=== PATIENT | female | born 1960 | race American Indian/Alaskan Native ===

== ENCOUNTER 2019-09-09 09:08 | Emergency (ER) | payer OTHER ==
--- NOTE | 2019-09-09 09:24 | ED Physician Documentation ---
PD HPI BACK PAIN - Stated complaint Stated Complaint: LOWER BACK PX - Chief complaint Chief Complaint: Back Pain - History obtained from History obtained from: Patient - History of Present Illness Timing - onset: How many days ago (3) Timing - duration: Days (3) Timing - details: Still present Pain level now: 8 Location: Lower, Right Quality: Pain Associated symptoms: No: Fever, Numbness, Incontinent of urine, Incontinent of stool Improves with: Position Worsened by: Movement Contributing factors: No: Twisting, Trauma Recently seen: Not recently seen - Additional information Additional information: This 58-year-old woman who presents with her family complaints that she started developed low back pain on the right side about 3 days ago is just gotten progressively worse to the point this morning is now an 8 out of 10 and she did take 2 Aleve approximately an hour and a half ago. She said that just barely took the edge off. Pain is radiating around into the right groin. She is been nauseous with it but no vomiting or diarrhea. She had a bowel movement this morning around 5 AM there was no blood in it. She is noticed that it is worse if she bends over and has not noted anything that helps relieve it other than getting in certain sessions. She denies any dysuria or hematuria. No pain radiating down the leg. She is not had a fever. She does have a history of diverticulitis that she says they drained previously. Status post hysterectomy but still has both ovaries. Review of Systems Constitutional: denies: Fever Respiratory: denies: Cough GI: reports: Abdominal Pain, Nausea. denies: Vomiting, Constipation, Diarrhea, Bloody / black stool : denies: Dysuria, Hematuria Skin: denies: Rash Musculoskeletal: reports: Back pain Neurologic: denies: Numbness PD PAST MEDICAL HISTORY - Present Medications Home Medications: Ambulatory Orders Medication Instructions Recorded Confirmed Cyclobenzaprine [Flexeril] 10 mg PO TID PRN #20 tablet 09/09/19 - Allergies Allergies/Adverse Reactions: Allergies Allergy/AdvReac Type Severity Reaction Status Date / Time tetracycline Allergy Rash Verified 09/09/19 09:13 PD ED PE NORMAL - Vitals Vital signs reviewed: Yes - General General: Alert and oriented X 3, No acute distress, Well developed/nourished - HEENT HEENT: Atraumatic, PERRL, Other (No scleral icterus) - Cardiac Cardiac: RRR, No murmur, Strong equal pulses - Respiratory Respiratory: No respiratory distress, Clear bilaterally - Abdomen Abdomen: Normal bowel sounds, Soft, Non tender, No organomegaly - Back Back: No CVA TTP, No spinal TTP - Derm Derm: Normal color, Warm and dry, No rash - Neuro Neuro: Alert and oriented X 3, 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 intact, No motor deficit, No sensory deficit, Normal speech, Other (Reflux 1+ at the right quadricep, 2+ at the left quadricep.) - Psych Psych: Normal mood, Normal affect Results - Vitals Vitals: Vital Signs - 24 hr 09/09/19 09/09/19 09/09/19 09:13 11:07 12:06 Temperature 36.5 C 36.8 C Heart Rate 83 77 83 Respiratory 14 16 18 Rate Blood Pressure 168/91 H 153/102 H 145/70 H O2 Saturation 100 98 100 Oxygen O2 Source Room air - Labs Labs: Laboratory Tests 09/09/19 09/09/19 09/09/19 09:30 09:55 09:55 WBC 9.2 RBC 4.53 Hgb 13.8 Hct 42.3 MCV 93.4 MCH 30.5 MCHC 32.6 RDW 12.4 Plt Count 285 MPV 10.5 Neut # (Auto) 7.0 H Lymph # (Auto) 1.5 [place] # (Auto) 0.4 Eos # (Auto) 0.1 Baso # (Auto) 0.1 Absolute Nucleated RBC 0.00 Nucleated RBC % 0.0 Sodium 138 Potassium 3.5 Chloride 104 Carbon Dioxide 24 Anion Gap 10.0 BUN 14 Creatinine 0.6 Estimated GFR (MDRD) 102 Glucose 118 H Calcium 8.8 Total Bilirubin 0.7 AST 25 ALT 35 Alkaline Phosphatase 80 Total Protein 8.1 Albumin 4.3 Globulin 3.8 Albumin/Globulin Ratio 1.1 Lipase 28 Urine Color YELLOW Urine Clarity CLEAR Urine pH 7.5 Ur Specific [place] 1.020 Urine Protein NEGATIVE Urine Glucose (UA) NEGATIVE Urine Ketones NEGATIVE Urine Occult Blood NEGATIVE Urine Nitrite NEGATIVE Urine Bilirubin NEGATIVE Urine Urobilinogen 0.2 (NORMAL) Ur Leukocyte Esterase NEGATIVE Ur Microscopic Review NOT INDICATED Urine Culture Comments NOT INDICATED PD MEDICAL DECISION MAKING - ED course Complexity details: reviewed results, re-evaluated patient, d/w patient, d/w family ED course: 1150: Patient received Toradol 30 mg IV. Her labs look normal with no elevation in her white count. Kidney functions normal urine is clear. She said she had very minimal relief after the Toradol injection was still having pain at a 6-7 out of 10. She will be given morphine 4 mg and Zofran 4 mg IV. Results of the Labs were discussed with her and her family. She does not have an acute abdomen at this time. She will be discharged home with prescriptions for muscle relaxer and encouraged use ibuprofen [id number]. I [place]. 1247: Patient is feeling better and ready to be discharged. Departure - Departure Disposition: Home, Self Care Clinical Impression: Back pain Qualifiers: Back pain location: low back pain Chronicity: acute Back pain laterality: right Sciatica presence: without sciatica Qualified Code(s): M54.5 - Low back pain Condition: Good Instructions: ED Back Care Tips, ED Exercises Lumbar Muscles, ED Neck Back Pain General Follow-Up: [facility] [Provider Group] Prescriptions: Cyclobenzaprine [Flexeril] 10 mg PO TID PRN #20 tablet PRN Reason: Spasms Comments: Take ibuprofen 3 tablets every 8 hours with food [id number]. May use the muscle relaxer 1 tablet up to 3 times a day as needed for pain. Do not drive or operate machinery if you take that medicine. Ice the lower back and the stretching exercises that were provided are appropriate to do. [place]
[2019-09-09 09:42] LABS: BILIRUBIN,URINE NEGATIVE (NEGATIVE); GLUCOSE, URINE (UA) NEGATIVE (NEGATIVE); KETONES,URINE (UA) NEGATIVE (NEGATIVE); LEUKOCYTE ESTERASE, URINE NEGATIVE (NEGATIVE); NITRITE,URINE NEGATIVE (NEGATIVE); OCCULT BLOOD,URINE NEGATIVE (NEGATIVE); PH,URINE 7.5 PH (5.0-7.5); PROTEIN,URINE NEGATIVE (NEGATIVE); UROBILINOGEN,URINE 0.2 (NORMAL) E.U./dL (NORMAL)
[2019-09-09] MEDS ORDERED: KETOROLAC 30 MG/ML VIAL IVP STA (09:43)
[2019-09-09 09:44] LABS: CLARITY,URINE CLEAR (CLEAR)
[2019-09-09 10:11] LABS: BASOPHILS # (AUTO) 0.1 10^3/uL (0.0-0.1); BASOPHILS % (AUTO) 0.7 %; EOSINOPHILS # (AUTO) 0.1 10^3/uL (0.0-0.7); EOSINOPHILS % (AUTO) 1.4 %; HGB - HEMOGLOBIN 13.8 g/dL (12.0-16.0); LYMPHOCYTES # (AUTO) 1.5 10^3/uL (1.5-3.5); LYMPHOCYTES % (AUTO) 16.4 %; MEAN CORPUSCULAR HEMOGLOBIN 30.5 pg (27.0-31.0); MEAN CORPUSCULAR HGB CONC 32.6 g/dL (32.0-36.0); MEAN CORPUSCULAR VOLUME 93.4 fL (81.0-99.0); MEAN PLATELET VOLUME 10.5 fL (7.9-10.8); MONOCYTES # (AUTO) 0.4 10^3/uL (0.0-1.0); MONOCYTES % (AUTO) 4.6 %; NEUTROPHILS % (AUTO) 76.4 %; PLT - PLATELET COUNT 285 10^3/uL (130-450); RED BLOOD COUNT 4.53 10^6/uL (4.20-5.40); RED CELL DISTRIBUTION WIDTH 12.4 % (12.0-15.0); WHITE BLOOD COUNT 9.2 x10^3/uL (4.8-10.8)
[2019-09-09 10:25] LABS: ALBUMIN 4.3 g/dL (3.2-5.5); ALBUMIN/GLOBULIN RATIO 1.1 (1.0-2.2); BILIRUBIN,TOTAL 0.7 mg/dL (0.2-1.0); CALCIUM 8.8 mg/dL (8.5-10.3); CREATININE 0.6 mg/dL (0.4-1.0); TOTAL PROTEIN 8.1 g/dL (6.7-8.2)
[2019-09-09] MEDS ORDERED: ONDANSETRON 4 MG/2 ML VIAL IVP STA (11:58)
[2019-09-09] MEDS ORDERED: MORPHINE 2 MG/ML CARPUJECT IVP STA (11:58)
[2019-09-09 12:56] VITALS: BP 151/82
== END 2019-09-09 13:07 | disposition home or self-care (01) ==
LOC: ED 09:08
DX: M54.5 Low back pain (principal)
CPT/HCPCS: 36415; 80053; 81001; 81003; 83690; 85025; 87086; 96374; 96375; 99284

== ENCOUNTER 2020-05-22 14:02 | Outpatient (CLI) | payer OTHER | END 2020-05-22 14:03 | disposition EMS.NT | LOC: EMS 14:02 | PROVIDERS: ATTEND Surgery | DX: R10.30 Lower abdominal pain, unspecified (principal); R42 Dizziness and giddiness; R30.0 Dysuria ==

== ENCOUNTER 2020-05-22 14:32 | Emergency (ER) | payer OTHER ==
[2020-05-22] MEDS ORDERED: HYDROmorphone 1 MG/ML CARPUJECT IVP STA (14:50)
--- NOTE | 2020-05-22 14:54 | ED Physician Documentation ---
PD HPI ABD PAIN - Stated complaint Stated Complaint: LT SIDE PX - Chief complaint Chief Complaint: Abd Pain - History obtained from History obtained from: Patient - Additional information Additional information: Relatively sudden onset left mid-abd pain at 0930 today. Slight nausea. Had nl BM this AM. No fevers. Had urethral diverticular repair and hyst in the past. No hx colonic diverticulitis. No hx renal colic. Feels like can't pee, but is urinating. 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 - Present Medications Home Medications: Ambulatory Orders Medication Instructions Recorded Confirmed Cyclobenzaprine [Flexeril] 10 mg PO TID PRN #20 tablet 09/09/19 Ibuprofen [Motrin] 800 mg PO Q8H PRN #20 tablet 05/22/20 Ondansetron Odt [Zofran] 4 mg TL Q6H PRN #10 tablet 05/22/20 Oxycodone HCl/Acetaminophen 1 - 2 each PO Q6H PRN #14 tablet 05/22/20 [Percocet 5-325 mg Tablet] Tamsulosin [Flomax] 0.4 mg PO DAILY #14 capsule 05/22/20 - Allergies Allergies/Adverse Reactions: Allergies Allergy/AdvReac Type Severity Reaction Status Date / Time tetracycline Allergy Rash Verified 05/22/20 14:42 - Social History Does the pt smoke?: No Smoking Status: Never smoker Does the pt drink ETOH?: No Does the pt have substance abuse?: No - Immunizations Immunizations are current?: Yes - POLST Patient has POLST: No PD ED PE NORMAL - Vitals Vital signs reviewed: Yes - General General: Alert and oriented X 3, No acute distress - HEENT HEENT: PERRL, EOMI, Other (serous otitis R ear) - Neck Neck: Supple, no meningeal sign, No bony TTP - Cardiac Cardiac: RRR, No murmur - Respiratory Respiratory: No respiratory distress, Clear bilaterally - Abdomen Abdomen: Normal bowel sounds, Soft, Non tender, Non distended - Back Back: No CVA TTP, No spinal TTP - Derm Derm: Normal color, Warm and dry - Extremities Extremities: No edema, No calf tenderness / cord - Neuro Neuro: Alert and oriented X 3, Normal speech Results - Vitals Vitals: Vital Signs - 24 hr 05/22/20 05/22/20 14:42 14:45 Temperature 36.8 C 36.8 C Heart Rate 89 89 Respiratory 16 16 Rate Blood Pressure 162/89 H 162/89 H O2 Saturation 100 100 Oxygen O2 Source Room air - Labs Labs: Laboratory Tests 05/22/20 05/22/20 05/22/20 15:19 15:19 15:23 WBC 11.5 H RBC 4.38 Hgb 13.7 Hct 41.3 MCV 94.3 MCH 31.3 H MCHC 33.2 RDW 12.3 Plt Count 279 MPV 10.6 Neut # (Auto) 7.9 H Lymph # (Auto) 2.5 [place] # (Auto) 0.8 Eos # (Auto) 0.2 Baso # (Auto) 0.1 Absolute Nucleated RBC 0.00 Nucleated RBC % 0.0 Sodium 135 Potassium 3.9 Chloride 102 Carbon Dioxide 22 Anion Gap 11.0 BUN 17 Creatinine 0.9 Estimated GFR (MDRD) 64 L Glucose 106 H Calcium 9.1 Total Bilirubin 0.8 AST 33 ALT 42 Alkaline Phosphatase 88 Total Protein 8.5 H Albumin 4.5 Globulin 4.0 Albumin/Globulin Ratio 1.1 Lipase 24 Urine Color YELLOW Urine Clarity CLEAR Urine pH 7.5 Ur Specific [place] 1.020 Urine Protein NEGATIVE Urine Glucose (UA) NEGATIVE Urine Ketones NEGATIVE Urine Occult Blood TRACE-INTA Urine Nitrite NEGATIVE Urine Bilirubin NEGATIVE Urine Urobilinogen 0.2 (NORMAL) Ur Leukocyte Esterase NEGATIVE Ur Microscopic Review NOT INDICATED Urine Culture Comments NOT INDICATED PD MEDICAL DECISION MAKING - ED course ED course: 59-year-old woman presents with left-sided abdominal pain. She is nontender. Work-up demonstrates a 3 mm left UVJ stone. She was all but pain-free after 0.5 mg of hydromorphone here. Departure - Departure Disposition: 01 Home, Self Care Clinical Impression: Renal colic on left side Condition: Good Record reviewed to determine appropriate education?: Yes Instructions: ED Stone Renal W Colic Prescriptions: Tamsulosin [Flomax] 0.4 mg PO DAILY #14 capsule Ibuprofen [Motrin] 800 mg PO Q8H PRN #20 tablet PRN Reason: PAIN &/OR FEVER Oxycodone HCl/Acetaminophen [Percocet 5-325 mg Tablet] 1 - 2 each PO Q6H PRN #14 tablet PRN Reason: pain Ondansetron Odt [Zofran] 4 mg TL Q6H PRN #10 tablet PRN Reason: Nausea / Vomiting Comments: You were seen today for a 2 to 3 mm kidney stone on the left side. Given the size and location I expect this to pass quickly and without the need for specialist intervention. Return for new or worsening symptoms. Follow-up with your primary care physician, next available appointment. Do not drink or drive while taking prescription pain medication. Do not get up fast while taking the Flomax/tamsulosin, it may make you dizzy if you get up quickly.
[2020-05-22 15:26] LABS: BASOPHILS # (AUTO) 0.1 10^3/uL (0.0-0.1); BASOPHILS % (AUTO) 0.9 %; EOSINOPHILS # (AUTO) 0.2 10^3/uL (0.0-0.7); EOSINOPHILS % (AUTO) 1.4 %; HGB - HEMOGLOBIN 13.7 g/dL (12.0-16.0); LYMPHOCYTES # (AUTO) 2.5 10^3/uL (1.5-3.5); LYMPHOCYTES % (AUTO) 21.8 %; MEAN CORPUSCULAR HEMOGLOBIN 31.3 pg (27.0-31.0); MEAN CORPUSCULAR HGB CONC 33.2 g/dL (32.0-36.0); MEAN CORPUSCULAR VOLUME 94.3 fL (81.0-99.0); MEAN PLATELET VOLUME 10.6 fL (7.9-10.8); MONOCYTES # (AUTO) 0.8 10^3/uL (0.0-1.0); MONOCYTES % (AUTO) 6.9 %; NEUTROPHILS # (AUTO) 7.9 10^3/uL (1.5-6.6); NEUTROPHILS % (AUTO) 68.6 %; PLT - PLATELET COUNT 279 10^3/uL (130-450); RED BLOOD COUNT 4.38 10^6/uL (4.20-5.40); RED CELL DISTRIBUTION WIDTH 12.3 % (12.0-15.0); WHITE BLOOD COUNT 11.5 x10^3/uL (4.8-10.8)
[2020-05-22 15:35] LABS: BILIRUBIN,URINE NEGATIVE (NEGATIVE); GLUCOSE, URINE (UA) NEGATIVE (NEGATIVE); KETONES,URINE (UA) NEGATIVE (NEGATIVE); LEUKOCYTE ESTERASE, URINE NEGATIVE (NEGATIVE); NITRITE,URINE NEGATIVE (NEGATIVE); OCCULT BLOOD,URINE TRACE-INTA (NEGATIVE); PH,URINE 7.5 PH (5.0-7.5); PROTEIN,URINE NEGATIVE (NEGATIVE); UROBILINOGEN,URINE 0.2 (NORMAL) E.U./dL (NORMAL)
[2020-05-22 15:37] LABS: CLARITY,URINE CLEAR (CLEAR)
[2020-05-22 15:44] LABS: ALBUMIN 4.5 g/dL (3.2-5.5); ALBUMIN/GLOBULIN RATIO 1.1 (1.0-2.2); BILIRUBIN,TOTAL 0.8 mg/dL (0.2-1.0); CALCIUM 9.1 mg/dL (8.5-10.3); CREATININE 0.9 mg/dL (0.4-1.0); TOTAL PROTEIN 8.5 g/dL (6.7-8.2)
[2020-05-22] MEDS ORDERED: ONDANSETRON 4 MG/2 ML VIAL IVP STA (15:46)
--- NOTE | 2020-05-22 16:04 | CT Report ---
PROCEDURE: Abdomen/Pelvis WO INDICATIONS: L flank / abd pain TECHNIQUE: Noncontrast 5 mm thick sections acquired from the diaphragms to the symphysis. 5 mm coronal and sagi ttal reformats were then performed. For radiation dose reduction, the following was used: automated exposure control, adjustment of mA and/or kV according to patient size. COMPARISON: None. FINDINGS: Image quality: Excellent. ABDOMEN: Lung bases: Lung bases are clear. Heart size is normal. Solid organs: Liver and spleen are normal in size. Gallbladder wall does not appear thickened. P ancreas is normal in contours. No adrenal nodules. There is an obstructing stone measuring 2-3 mm within the distal left ureterovesicular junction, as o n series 3 image 128 and on series 6 image 58. There is associated mild to moderate left-sided hydrou reter and hydronephrosis. Mild left-sided perinephric fat stranding is seen. No nonobstructing stones are seen. No right-sided hydronephrosis is seen. Peritoneum and bowel: Unenhanced bowel loops demonstrate normal wall thickness and caliber. No free fluid or air. A normal appendix is incidentally noted. Nodes and vessels: No retroperitoneal or mesenteric adenopathy by size criteria. Aorta and inferior vena cava are normal in caliber. Miscellaneous: No ventral hernias. PELVIS: Genitourinary: Bladder wall thickness is normal. This patient is status post hysterectomy. No adnex al masses can be seen. Miscellaneous: No inguinal hernias or adenopathy. Bones: No suspicious bony lesions. No vertebral body compression fractures. Grade 1 L5-S1 anteroli sthesis is seen, with associated focal degenerative change, with moderate loss of disc height. Milder degenerative changes are seen elsewhere. IMPRESSION: 2 to 3 mm obstructing stone seen at the left ureterovesicular junction, with associated mild to moder ate left-sided hydroureter and hydronephrosis. No nonobstructing kidney stones are seen. Incidental note is made of: Hysterectomy Grade 1 L5-S1 anterolisthesis, with associated focal degenerative change. Reviewed by: Helio Younger MD on 05/22/2020 3:02 PM AKDT Approved by: Helio Younger MD on 05/22/2020 3:02 PM AKDT Station ID: [id number]
[2020-05-22 16:18] VITALS: BP 125/76
== END 2020-05-22 16:18 | disposition home or self-care (01) ==
LOC: ED 14:32
DX: N13.2 Hydronephrosis with renal and ureteral calculous obstruction (principal); H65.91 Unspecified nonsuppurative otitis media, right ear; I10 Essential (primary) hypertension
CPT/HCPCS: 36415; 74176; 80053; 81003; 83690; 85025; 96374; 96375; 99284; 99285; J1170; 81001; 87086

== ENCOUNTER 2024-01-01 09:55 | Outpatient (CLI) | payer MEDICARE, OTHER ==
[2024-01-01 11:53] LABS: BASOPHILS # (AUTO) 0.1 10^3/uL (0.0-0.1); BASOPHILS % (AUTO) 1.5 %; EOSINOPHILS # (AUTO) 0.4 10^3/uL (0.0-0.7); EOSINOPHILS % (AUTO) 4.3 %; HGB - HEMOGLOBIN 13.8 g/dL (12.0-16.0); LYMPHOCYTES % (AUTO) 36.4 %; MEAN CORPUSCULAR HGB CONC 32.9 g/dL (32.0-36.0); MEAN CORPUSCULAR VOLUME 94.4 fL (81.0-99.0); MEAN PLATELET VOLUME 10.9 fL (7.9-10.8); MONOCYTES # (AUTO) 0.5 10^3/uL (0.0-1.0); MONOCYTES % (AUTO) 6.6 %; NEUTROPHILS # (AUTO) 4.2 10^3/uL (1.5-6.6); PLT - PLATELET COUNT 343 10^3/uL (130-450); RED BLOOD COUNT 4.45 10^6/uL (4.20-5.40); RED CELL DISTRIBUTION WIDTH 12.2 % (12.0-15.0); WHITE BLOOD COUNT 8.2 x10^3/uL (4.8-10.8)
[2024-01-01 12:10] LABS: ALBUMIN 4.4 g/dL (3.2-5.5); ALBUMIN/GLOBULIN RATIO 1.1 (1.0-2.2); ALKALINE PHOSPHATASE 96 IU/L (42-121); ALT ALANINE AMINOTRANSFERASE 24 IU/L (10-60); AST ASPARTATE AMINOTRANSFERASE 21 IU/L (10-42); BILIRUBIN,TOTAL 0.5 mg/dL (0.2-1.0); BUN - BLOOD UREA NITROGEN 13 mg/dL (6-20); CALCIUM 9.7 mg/dL (8.5-10.3); CARBON DIOXIDE - CO2 28 mmol/L (21-32); CHLORIDE 103 mmol/L (101-111); CHOL/HDL RATIO 3.4 (<4.4); CHOLESTEROL 238 mg/dL; CREATININE 0.7 mg/dL (0.6-1.3); GFR - MDRD 84 (>89); GLUCOSE 95 mg/dL (74-104); HDL CHOLESTEROL 69 mg/dL; LDL CHOLESTEROL,CALCULATED 150 mg/dL; LDL/HDL RATIO 2.2 (<4.4); POTASSIUM 3.7 mmol/L (3.5-4.5); SODIUM 138 mmol/L (135-145); TOTAL PROTEIN 8.3 g/dL (6.4-8.9); TRIGLYCERIDES 93 mg/dL (48-352); VLDL CHOLESTEROL 19 mg/dL
[2024-01-01 12:21] LABS: THYROID STIMULATING HORMONE 2.23 uIU/mL (0.34-5.60)
== END 2024-01-01 09:56 | disposition home or self-care (01) ==
LOC: LAB.N 09:55
PROVIDERS: ATTEND Physician Assistant
DX: I10 Essential (primary) hypertension (principal)
CPT/HCPCS: 36415; 80053; 80061; 83721; 84443; 85025

== ENCOUNTER 2024-01-10 10:16 | Outpatient (CLI) | payer MEDICARE, OTHER ==
--- NOTE | 2024-01-10 22:00 | DEXA Report ---
PROCEDURE: Dexa Spine and/or Hip INDICATIONS: POST MENOPAUSAL TECHNIQUE: Dual energy x-ray absorptiometry (DXA) was performed on a Ze-gen System. Regions measur ed are the AP Spine, femoral neck, and if needed forearm. COMPARISON: None FINDINGS: Lumbar Spine: Bone Mineral Density: 1.139 g/cm/cm,T score: -0.3. Left Femoral Neck: Bone Mineral Density: 0.801 g/cm/cm, T score: -1.7. Left Hip: Bone Mineral Density: 0.916 g/cm/cm,T score: -0.7. (T score greater or equal to -1.0: NORMAL) (T score from -1.1 to -2.4: OSTEOPENIA) (T score less than or equal to -2.5 to: OSTEOPOROSIS) Impression: By WHO criteria, this patient has low bone density (osteopenia). Patients with diagnosis of osteoporosis or osteopenia should have regular bone mineral density assess ment. For those eligible for Medicare, routine testing is allowed once every 2 years. Testing frequ ency can be increased for patients who have rapidly progressing disease or for those who are receivin g medical therapy to restore bone mass. Reviewed by: Aleksandar Esclaona MD on 01/10/2024 9:59 PM PDT Approved by: Aleksandar Escalona MD on 01/10/2024 9:59 PM PDT Station ID: [id number]
== END 2024-01-10 10:17 | disposition home or self-care (01) ==
LOC: DI 10:16
PROVIDERS: ATTEND Physician Assistant
DX: M85.88 Other specified disorders of bone density and structure, other site (principal); Z78.0 Asymptomatic menopausal state

== ENCOUNTER 2024-01-29 11:23 | Outpatient (CLI) | payer MEDICARE, OTHER ==
--- NOTE | 2024-01-29 12:44 | XRAY Report ---
PROCEDURE: Shoulder 2+V BL INDICATIONS: BILATERAL SHOULDER PAIN TECHNIQUE: 3 views of each of the bilateral shoulder were acquired. COMPARISON: None. FINDINGS: Bones: No acute fractures or dislocations. No suspicious bony lesions. Visualized ribs appear inta ct. Degenerative changes of the bilateral acromioclavicular and glenohumeral joints. Soft tissues: No suspicious soft tissue calcifications. The visualized lungs are within normal limi ts. IMPRESSION: No acute bony abnormality. Degenerative changes of the bilateral glenohumeral and acromioclavicular joints. Reviewed by: Aleksandar Koehler MD on 01/29/2024 12:42 PM PDT Approved by: Aleksandar Koehler MD on 01/29/2024 12:42 PM PDT Station ID: [id number]
== END 2024-01-29 11:24 | disposition home or self-care (01) ==
LOC: DI 11:23
PROVIDERS: ATTEND Physician Assistant Surgical
DX: M19.012 Primary osteoarthritis, left shoulder (principal); M19.011 Primary osteoarthritis, right shoulder